=== PATIENT | male | born 1960 ===

== ENCOUNTER 2018-03-05 13:05 | Emergency (ER) | payer SELFPAY ==
[2018-03-05] MEDS ORDERED: ZOFRAN ONE (13:09)
[2018-03-05] MEDS ORDERED: ZOFRAN IV ONE (13:22)
[2018-03-05 13:44] LABS: Hematocrit 45.1 % (35.5-45.6); Hemoglobin 15.3 gm/dl (11.8-15.2); Mean Corpuscular HGB Conc 34 % (32-34); Mean Corpuscular Hemoglobin 30 pg (28-32); Mean Corpuscular Volume 88 fl (84-94); Platelet Count 249 K/mm3 (140-440); Red Blood Count 5.12 M/mm3 (3.65-5.03); Red Cell Distribution Width 13.6 % (13.2-15.2)
[2018-03-05] MEDS ORDERED: ANTIVERT PO ONE (13:47)
[2018-03-05] MEDS ORDERED: REGLAN IV ONE (13:47)
[2018-03-05 14:00] VITALS: BP 174/87
[2018-03-05 14:00] LABS: Alanine Aminotransferase 23 units/L (7-56); Albumin 4.4 g/dL (3.9-5); BUN/Creatinine Ratio 26; Blood Urea Nitrogen 18 mg/dL (9-20); Calcium 9.9 mg/dL (8.4-10.2); Hemolysis Index 16
--- NOTE | 2018-03-05 14:02 | Emergency Department Report ---
HPI - General Chief Complaint: Nausea/Vomiting/Diarrhea Time Seen by Provider: 03/05/18 13:38 - HPI HPI: Room 3 The patient is a 57-year-old male presenting with chief complaint of dizziness. The patient states he was driving slowly began to feel dizzy. The patient states she ate some food to see if that helped but his dizziness worsened leading to nausea and vomiting. Patient states it does feel as though the room is spinning at times. Patient denies a headache. Patient denies chest pain, shortness of breath or fever. The patient states he took an Aleve earlier today prior to the onset of his symptoms because he "felt tired." Location: [See above] Duration: Onset today Quality: dizziness Severity: Moderate Modifying factors: [see above] Context: [see above] Mode of transportation: [not driving] ED Past Medical Hx - Past Medical History Previous Medical History?: Yes Hx Diabetes: Yes - Surgical History Past Surgical History?: No - Family History Family history: no significant - Social History Smoking Status: Former Smoker (none 5 years) Substance Use Type: None (denies illicit drug use) - Medications Home Medications: Home Medications Medication Instructions Recorded Confirmed Last Taken Type Meclizine [Antivert] 25 mg PO TID PRN #20 tablet 03/05/18 Unknown Rx Ondansetron [Zofran ODT TAB] 8 mg PO Q8HR #20 tab.rapdis 03/05/18 Unknown Rx Promethazine [Phenergan] 25 mg WV Q6HR PRN #5 supp.rect 03/05/18 Unknown Rx ED Review of Systems ROS: Stated complaint: NAUSEA/VOMITING Other details as noted in HPI Constitutional: denies: fever Eyes: denies: eye pain ENT: denies: throat pain Respiratory: denies: shortness of breath Cardiovascular: denies: chest pain Endocrine: denies: unexplained weight loss Gastrointestinal: nausea, vomiting. denies: abdominal pain Genitourinary: denies: dysuria Musculoskeletal: denies: back pain Skin: denies: change in color Neurological: vertigo. denies: headache Physical Exam - Physical Exam Vital Signs: Vital Signs 03/05/18 03/05/18 03/05/18 13:15 13:17 13:45 Temperature 97.9 F Pulse Rate 80 69 65 Respiratory 20 16 21 Rate Blood Pressure 182/94 182/94 174/87 O2 Sat by Pulse 98 97 95 Oximetry Physical Exam: GENERAL: The patient is well-developed well-nourished male sitting on stretcher not appearing to be in acute distress. [] HEENT: Normocephalic. Atraumatic. Extraocular motions are intact. Patient has moist mucous membranes. No nystagmus NECK: Supple. No meningitic signs are noted. Trachea midline CHEST/LUNGS: Clear to auscultation. There is no respiratory distress noted. HEART/CARDIOVASCULAR: Regular. There is no tachycardia. There is no gallop rub or murmur. ABDOMEN: Abdomen is soft, nontender. Patient has normal bowel sounds. There is no abdominal distention. SKIN: There is no rash. There is no edema. There is no diaphoresis. NEURO: The patient is awake, alert, and oriented. The patient is cooperative. The patient has no focal neurologic deficits. The patient has normal speech. Cranial nerves II through XII grossly intact, no drift. No dysmetria noted with finger to nose bilaterally MUSCULOSKELETAL: There is no evidence of acute injury. ED Course Vital Signs 03/05/18 03/05/18 03/05/18 13:15 13:17 13:45 Temperature 97.9 F Pulse Rate 80 69 65 Respiratory 20 16 21 Rate Blood Pressure 182/94 182/94 174/87 O2 Sat by Pulse 98 97 95 Oximetry - Reevaluation(s) Reevaluation #1: 03/05/18 15:43 Patient states she feels improved. Patient states his dizziness and nausea has resolved while at rest. Nursing reports patient complained of slight dizziness while standing during orthostatics. Will administer IV fluids and reassess Reevaluation #2: 03/05/18 16:50 Patient states he is feeling good. ED Medical Decision Making - Lab Data Result diagrams: 03/05/18 13:26 03/05/18 13:26 Laboratory Tests 03/05/18 03/05/18 03/05/18 13:26 13:26 13:26 WBC 11.4 H RBC 5.12 H Hgb 15.3 H Hct 45.1 MCV 88 MCH 30 MCHC 34 RDW 13.6 Plt Count 249 Add Manual Diff Complete Total Counted 100 Seg Neuts % (Manual) 44.0 Band Neutrophils % 0 Lymphocytes % (Manual) 50.0 H Reactive Lymphs % (Man) 0 Monocytes % (Manual) 3.0 Eosinophils % (Manual) 2.0 Basophils % (Manual) 1.0 Metamyelocytes % 0 Myelocytes % 0 Promyelocytes % 0 Blast Cells % 0 Nucleated RBC % Not Reportable Seg Neutrophils # Man 5.0 Band Neutrophils # 0.0 Lymphocytes # (Manual) 5.7 H Abs React Lymphs (Man) 0.0 Monocytes # (Manual) 0.3 Eosinophils # (Manual) 0.2 Basophils # (Manual) 0.1 Metamyelocytes # 0.0 Myelocytes # 0.0 Promyelocytes # 0.0 Blast Cells # 0.0 WBC Morphology Not Reportable Hypersegmented Neuts Not Reportable Hyposegmented Neuts Not Reportable Hypogranular Neuts Not Reportable Smudge Cells Not Reportable Toxic Granulation Not Reportable Toxic Vacuolation Not Reportable Dohle Bodies Not Reportable Pelger-Huet Anomaly Not Reportable Romeo Rods Not Reportable Platelet Estimate Appears normal Clumped Platelets Not Reportable Plt Clumps, EDTA Not Reportable Large Platelets Not Reportable Giant Platelets Not Reportable Platelet Satelliting Not Reportable Plt Morphology Comment Not Reportable RBC Morphology Normal Dimorphic RBCs Not Reportable Polychromasia Not Reportable Hypochromasia Not Reportable Poikilocytosis Not Reportable Anisocytosis Not Reportable Microcytosis Not Reportable Macrocytosis Not Reportable Spherocytes Not Reportable Pappenheimer Bodies Not Reportable Sickle Cells Not Reportable Target Cells Not Reportable Tear Drop Cells Not Reportable Ovalocytes Not Reportable Helmet Cells Not Reportable Lehman-Leipsic Bodies Not Reportable [place] Rings Not Reportable [place] Cells Not Reportable Bite Cells Not Reportable Crenated Cell Not Reportable Elliptocytes Not Reportable Acanthocytes (Spur) Not Reportable Rouleaux Not Reportable Hemoglobin C Crystals Not Reportable Schistocytes Not Reportable Malaria parasites Not Reportable [place] Bodies Not Reportable Hem Pathologist Commnt No Sodium 136 L Potassium 4.0 Chloride 98.6 Carbon Dioxide 21 L Anion Gap 20 BUN 18 Creatinine 0.7 L Estimated GFR > 60 BUN/Creatinine Ratio 26 Glucose 291 H Calcium 9.9 Total Bilirubin 0.40 AST 22 ALT 23 Alkaline Phosphatase 86 Total Creatine Kinase 160 CK-MB (CK-2) 3.7 CK-MB (CK-2) Rel Index 2.3 Troponin T < 0.010 Total Protein 7.8 Albumin 4.4 Albumin/Globulin Ratio 1.3 Lipase 31 Urine Color Urine Turbidity Urine pH Ur Specific Mcfarlan Urine Protein Urine Glucose (UA) Urine Ketones Urine Blood Urine Nitrite Urine Bilirubin Urine Urobilinogen Ur Leukocyte Esterase Urine WBC (Auto) Urine RBC (Auto) U Epithel Cells (Auto) Urine Mucus 03/05/18 15:54 WBC RBC Hgb Hct MCV MCH MCHC RDW Plt Count Add Manual Diff Total Counted Seg Neuts % (Manual) Band Neutrophils % Lymphocytes % (Manual) Reactive Lymphs % (Man) Monocytes % (Manual) Eosinophils % (Manual) Basophils % (Manual) Metamyelocytes % Myelocytes % Promyelocytes % Blast Cells % Nucleated RBC % Seg Neutrophils # Man Band Neutrophils # Lymphocytes # (Manual) Abs React Lymphs (Man) Monocytes # (Manual) Eosinophils # (Manual) Basophils # (Manual) Metamyelocytes # Myelocytes # Promyelocytes # Blast Cells # WBC Morphology Hypersegmented Neuts Hyposegmented Neuts Hypogranular Neuts Smudge Cells Toxic Granulation Toxic Vacuolation Dohle Bodies Pelger-Huet Anomaly Romeo Rods Platelet Estimate Clumped Platelets Plt Clumps, EDTA Large Platelets Giant Platelets Platelet Satelliting Plt Morphology Comment RBC Morphology Dimorphic RBCs Polychromasia Hypochromasia Poikilocytosis Anisocytosis Microcytosis Macrocytosis Spherocytes Pappenheimer Bodies Sickle Cells Target Cells Tear Drop Cells Ovalocytes Helmet Cells Lehman-Leipsic Bodies [place] Rings [place] Cells Bite Cells Crenated Cell Elliptocytes Acanthocytes (Spur) Rouleaux Hemoglobin C Crystals Schistocytes Malaria parasites [place] Bodies Hem Pathologist Commnt Sodium Potassium Chloride Carbon Dioxide Anion Gap BUN Creatinine Estimated GFR BUN/Creatinine Ratio Glucose Calcium Total Bilirubin AST ALT Alkaline Phosphatase Total Creatine Kinase CK-MB (CK-2) CK-MB (CK-2) Rel Index Troponin T Total Protein Albumin Albumin/Globulin Ratio Lipase Urine Color Yellow Urine Turbidity Clear Urine pH 6.0 Ur Specific Mcfarlan 1.036 H Urine Protein 30 mg/dl Urine Glucose (UA) >=500 Urine Ketones Tr Urine Blood Neg Urine Nitrite Neg Urine Bilirubin Neg Urine Urobilinogen < 2.0 Ur Leukocyte Esterase Neg Urine WBC (Auto) 2.0 Urine RBC (Auto) 1.0 U Epithel Cells (Auto) < 1.0 Urine Mucus Few - EKG Data -: EKG Interpreted by Oh EKG shows normal: sinus rhythm Rate: normal - EKG Data When compared to previous EKG there are: previous EKG unavailable Interpretation: nonspecific ST-T wave nancy (T-wave inversions in leads 3 and aVF) - Radiology Data Radiology results: report reviewed (CT head), image reviewed (CT head) [facility] [address] [place] [address] Cat Scan Report Signed Patient: DANIELA WINTER MR#: [id number] : 1960 Acct:[id number] Age/Sex: 57 / M ADM Date: 03/05/18 Loc: ED Attending Dr: Ordering Physician: LELA DAVILA MD Date of Service: 03/05/18 Procedure(s): CT head/brain wo con Accession Number(s): [id number] cc: LELA DAVILA MD CT HEAD WITHOUT CONTRAST: HISTORY: Dizziness, nausea and vomiting. TECHNIQUE: Sequential 2.5mm CT images. COMPARISON: none. FINDINGS: Cerebral Parenchyma: Within normal limits. Cerebellum: Within normal limits. Brainstem: Within normal limits. Ventricles: Normal. Sella: Normal. Extra-axial spaces: Normal. Basal Cisterns: Normal. Intracranial Hemorrhage: None. Midline Shift: None. Calvarium: Normal. Sinuses: Normal. Mastoid Air Cells: Normal. Visualized Orbits : Normal. IMPRESSION: Cranial CT scan within normal limits. Transcribed By: TTR Dictated By: WOOD PIEDRA JR, MD Electronically Authenticated By: WOOD PIEDRA JR, MD Signed Date/Time: 03/05/181410 DD/ 10 TD/TT: 1410 - Differential Diagnosis vertigo, ICH, ACLS, electrolyte abnormality, dysrhythmia Critical care attestation.: If time is entered above; I have spent that time in minutes in the direct care of this critically ill patient, excluding procedure time. ED Disposition Clinical Impression: Vertigo Disposition: DC-01 TO HOME OR SELFCARE Is pt being admited?: No Does the pt Need Aspirin: No Condition: Stable Instructions: Vertigo (ED) Additional Instructions: Return to the emergency department immediately should you develop worsening symptoms, fever, inability to tolerate food or liquid or any other concerns. Prescriptions: Meclizine [Antivert] 25 mg PO TID PRN #20 tablet PRN Reason: Vertigo Ondansetron [Zofran ODT TAB] 8 mg PO Q8HR #20 tab.rapdis Promethazine [Phenergan] 25 mg WV Q6HR PRN #5 supp.rect PRN Reason: Vomiting Referrals: PRIMARY CARE,MD [Primary Care Provider] - 3-5 Days HECTOR LEDESMA MD [Staff Physician] - 2-3 Days (Dr. Ledesma is a neurologist. Please follow-up with him for further evaluation) Time of Disposition: 16:50
[2018-03-05 14:20] LABS: Creatine Kinase MB 3.7 ng/mL (0.0-4.0)
[2018-03-05 14:21] LABS: Lipase 31 units/L (13-60)
--- NOTE | 2018-03-05 14:34 | Cat Scan Report ---
CT HEAD WITHOUT CONTRAST: HISTORY: Dizziness, nausea and vomiting. TECHNIQUE: Sequential 2.5mm CT images. COMPARISON: none. FINDINGS: Cerebral Parenchyma: Within normal limits. Cerebellum: Within normal limits. Brainstem: Within normal limits. Ventricles: Normal. Sella: Normal. Extra-axial spaces: Normal. Basal Cisterns: Normal. Intracranial Hemorrhage: None. Midline Shift: None. Calvarium: Normal. Sinuses: Normal. Mastoid Air Cells: Normal. Visualized Orbits: Normal. IMPRESSION: Cranial CT scan within normal limits.
[2018-03-05] MEDS ORDERED: PHENERGAN PO ONE (14:52)
[2018-03-05 15:24] LABS: RBC Morphology Normal; Total Cells Counted 100
[2018-03-05] MEDS ORDERED: NACL 0.9% 1000 ML 1,000 ML IV ONE (15:40)
[2018-03-05 16:07] LABS: Bilirubin,Urine NEG (Negative); Blood,Urine NEG (Negative); Color,Urine Yellow (Yellow); Mucus,Urine FEW /HPF; Urobilinogen,Urine < 2.0 mg/dL (<2.0)
== END 2018-03-05 17:00 | disposition home or self-care (01) ==
LOC: ED 13:05
DX: R42 Dizziness and giddiness (principal); R11.2 Nausea with vomiting, unspecified; E11.9 Type 2 diabetes mellitus without complications; Z87.891 Personal history of nicotine dependence
CPT/HCPCS: 36415; 70450; 80053; 81001; 82550; 82553; 83690; 84484; 85007; 85025; 93005; 93010; 96361; 96374; 96375; 99284; J2405; J2765; J7030